=== PATIENT | female | born 1975 | race Caucasian/White ===

== ENCOUNTER 2017-06-23 04:57 | Emergency (ER) | payer SELFPAY ==
[2017-06-23] MEDS ORDERED: Sodium Chloride 0.9% 10 ML Syringe FLUSH PRN (05:05)
[2017-06-23] MEDS ORDERED: Norflurane/HFc 245FA Medium Stream Spray 103.5 ML Can ONE (05:12)
[2017-06-23] MEDS ORDERED: Thiamine 100 MG Tab PO ONE (05:31)
[2017-06-23 05:32] LABS: CHLORIDE,CL 99 mmol/L (98-107); SODIUM,NA 135 mmol/L (136-145)
[2017-06-23] MEDS ORDERED: Ondansetron 4 MG/2 ML SDV IVPUSH ONE (05:32)
[2017-06-23] MEDS ORDERED: Sodium Chloride 0.9% 1,000 ML IV ONE ×2 (05:32→08:00)
[2017-06-23] MEDS ORDERED: LORazepam 2 MG/ML MDV IVPUSH ONE ×2 (05:33→10:00)
--- NOTE | 2017-06-23 05:46 | EDM.PDOCBH ---
ED HPI GENERAL MEDICAL PROBLEM - General Chief Complaint: Behavioral/Psych Stated Complaint: etoh withdraw Time Seen by Provider: 06/23/17 05:16 Source of Information: Reports: Patient History Limitations: Reports: No Limitations - History of Present Illness INITIAL COMMENTS - FREE TEXT/NARRATIVE: Patient admits to increasing alcohol consumption and admits that she has now become alcoholic. Was drinking heavily the last 3-4 days (wine/vodka) and would drink till she blacked out. Her kids poured out her alcohol yesterday and she has not had a drink since 4pm yesterday. Is now having some shakes and mild nausea/abdominal discomfort. Feels she is withdrawing. Would like medication to help with symptoms. Has a son who is looking to get her into treatment. Denies hallucinations/seizures/prior DTs. - Related Data Allergies Allergy/AdvReac Type Severity Reaction Status Date / Time No Known Allergies Allergy Verified 06/23/17 04:59 Home Meds: Home Meds RX: Lisinopril/Hydrochlorothiazide [Lisinopril-Hctz 20-12.5 mg Tab] 1 each PO DAILY 01/31/14 [History] RX: B12/Levomefolate Calcium/B-6 [Foltx Tablet] 1 each PO DAILY 01/16/15 [ History] RX: Biotin 5 mg PO DAILY 01/16/15 [History] RX: Calcium Carb/D3/Magnesium/Zinc [Diogenes Mag Zinc + D Tablet] 2 tab PO DAILY 03/26 [History] RX: Ferrous Sulfate [Feosol] 325 mg PO DAILY 01/16/15 [History] RX: Gluc/Kory-Msm#1/Vit C/Augustus/Bor [Tgrifgl-Fwhkb-KVM Complex Cplt] 1 each PO DAILY 01/16/15 [History] RX: Lactobacillus Acidophilus [Acidophilus Lactobacillus] 1 each PO DAILY [History] RX: Magnesium Oxide [Magnesium] 400 mg PO DAILY 01/16/15 [History] RX: MQS379/Iron Fumarate/FA/DSS [ 19 Tablet] 1 tab PO DAILY 01/16/15 [ History] RX: Potassium Chloride 10 meq PO DAILY 01/16/15 [History] RX: Vit D3 & K/Berberine HCl/Hops [Ostera] 1 each PO DAILY 01/16/15 [History] LORazepam [Ativan] 0.5 mg PO ASDIRECTED #8 tablet 06/23/17 [Rx] LORazepam [Ativan] 1 mg PO ASDIRECTED #8 tablet 06/23/17 [Rx] Past Medical History Cardiovascular History: Reports: Hypertension Endocrine/Metabolic History: Reports: Obesity/BMI 30+ Social & Family History - Tobacco Use Smoking Status *Q: Never Smoker Second Hand Smoke Exposure: No - Alcohol Use Days Per Week of Alcohol Use: 7 (she denies alcohol abuse or previous DWI) Number of Drinks Per Day: 5 (hard liquor usually directly out of the bottle and not specifically measured) Total Drinks Per Week: 35 - Recreational Drug Use Recreational Drug Use: No Recreational Drug Type: Reports: Marijuana/Hashish (experimented at age 34). Denies: Amphetamines (Speed) (patient denies despite positive drug screen today) - Living Situation & Occupation Living situation: Reports: with Family Occupation: Employed ED ROS GENERAL - Review of Systems Review Of Systems: See Below Constitutional: Reports: Malaise, Decreased Appetite. Denies: Fever, Chills, Weakness, Fatigue, Night Sweats HEENT: Reports: Vertigo (triggered by head rotation) Respiratory: Reports: No Symptoms Cardiovascular: Reports: No Symptoms GI/Abdominal: Reports: Other (abdomen feels funny, not really described as painful per patient). Denies: Constipation, Diarrhea, Hematemesis, Hematochezia , Melena, Nausea, Vomiting : Reports: No Symptoms Musculoskeletal: Reports: No Symptoms Skin: Reports: No Symptoms Neurological: Reports: No Symptoms Psychiatric: Denies: Confusion, Hallucinations, Homicidal Ideation, Mood Lability, Suicidal Ideation ED EXAM, BEHAVIORAL HEALTH - Physical Exam Exam: See Below Exam Limited By: No Limitations General Appearance: Alert, No Apparent Distress, Obese Eye Exam: Bilateral Eye: EOMI, PERRL Ears: Normal External Exam Nose: Normal Inspection Throat/Mouth: Normal Inspection, Normal Voice, No Airway Compromise Head: Atraumatic, Normocephalic Neck: Normal Inspection, Supple, Non-Tender, Full Range of Motion Respiratory/Chest: No Respiratory Distress, Lungs Clear, Normal Breath Sounds, No Accessory Muscle Use, Chest Non-Tender Cardiovascular: Regular Rate, Rhythm, No Murmur GI/Abdominal: Normal Bowel Sounds, Soft, Non-Tender, No Distention (Female) Exam: Deferred Rectal (Female) Exam: Deferred Back Exam: Normal Inspection Extremities: Normal Inspection, Normal Range of Motion, Non-Tender, Normal Capillary Refill Neurological: Alert, Normal Mood/Affect, Normal Cognition, Normal Gait, Normal Reflexes, No Motor/Sensory Deficits, Oriented x 3 Psychiatric: Alert, Normal Affect, Normal Cognition, Normal Mood, Oriented Skin Exam: Warm, Dry, Intact, Normal color COURSE, BEHAVIORAL HEALTH COMP - Course Vital Signs: Last Vital Signs Temp Pulse 96 06/23/17 10:00 Resp 18 06/23/17 10:00 BP 146/89 H 06/23/17 10:00 Pulse Ox 99 06/23/17 10:00 Orders, Labs, Meds: Active Orders 24 hr Category Date Time Status Sodium Chloride 0.9% [Saline Flush] Med 06/23/17 05:05 Active 10 ml FLUSH ASDIRECTED PRN Saline Lock Insert [OM.PC] Routine Oth 06/23/17 05:05 Ordered Medication Orders Sodium Chloride (Saline Flush) 10 ml FLUSH ASDIRECTED PRN PRN Reason: Keep Vein Open Last Admin: 06/23/17 05:24 Dose: 10 ml Laboratory Tests 06/23/17 06/23/17 06/23/17 Range/Units 05:15 05:15 06:20 WBC 4.9 (4.0-10.2) K/uL RBC 5.54 H (3.77-5.09) M/uL Hgb 12.3 (11.7-15.5) g/dL Hct 39.9 (34.0-46.0) % MCV 72.0 L D (84.0-98.0) fL MCH 22.2 L (28.2-33.3) pg MCHC 30.8 L (31.7-36.0) g/dL RDW 19.2 H (11.2-14.1) % Plt Count 271 (150-350) K/uL Neut % (Auto) 68.1 (45.0-80.0) % Lymph % (Auto) 17.3 (10.0-50.0) % [place] % (Auto) 12.8 (2.0-14.0) % Eos % (Auto) 0.6 (0.0-5.0) % Baso % (Auto) 1.2 (0.0-2.0) % Neut # (Auto) 3.31 (1.40-7.00) K/uL Lymph # (Auto) 0.84 (0.50-3.50) K/uL [place] # (Auto) 0.62 (0.00-1.00) K/uL Eos # (Auto) 0.03 (0.00-0.50) K/uL Baso # (Auto) 0.06 (0.00-0.20) K/uL Sodium 135 L (136-145) mmol/L Potassium 4.0 (3.5-5.1) mmol/L Chloride 99 (98-107) mmol/L Carbon Dioxide 25.2 (21.0-32.0) mmol/L BUN 12 (7-18) mg/dL Creatinine 0.69 (0.51-1.17) mg/dL Est Cr Clr Drug Dosing 80.15 mL/min Estimated GFR (MDRD) > 60 mL/min Glucose 113 H (74-106) mg/dL Calcium 9.1 (8.5-10.1) mg/dL Total Bilirubin 0.6 (0.2-1.0) mg/dL AST 39 H (15-37) U/L ALT 29 (12-78) U/L Alkaline Phosphatase 72 (46-116) IU/L Total Protein 7.8 (6.4-8.2) g/dL Albumin 3.4 (3.4-5.0) g/dL Urine Opiates Screen Negative (NEGATIVE) Urine Methadone Screen Negative (NEGATIVE) U Acetaminophen Screen Negative (NEGATIVE) Ur Barbiturates Screen Negative (NEGATIVE) Ur Tricyclics Screen Negative (NEGATIVE) Ur Phencyclidine Scrn Negative (NEGATIVE) Ur Amphetamine Screen Negative (NEGATIVE) U Methamphetamines Scrn Negative (NEGATIVE) U Benzodiazepines Scrn Negative (NEGATIVE) U Cocaine Metab Screen Negative (NEGATIVE) U Marijuana (THC) Screen Negative (NEGATIVE) Ethyl Alcohol 0.000 (0.000-0.080) g/dL Medications Generic Name Dose Route Start Last Admin Trade Name Freq PRN Reason Stop Dose Admin Sodium Chloride 10 ml 06/23/17 05:05 06/23/17 05:24 Saline Flush FLUSH 10 ml ASDIRECTED PRN Administration Keep Vein Open Discontinued Medications Generic Name Dose Route Start Last Admin Trade Name Freq PRN Reason Stop Dose Admin Sodium Chloride 1,000 mls @ 500 mls/hr 06/23/17 05:32 06/23/17 05:44 Normal Saline IV 06/23/17 07:31 500 mls/hr .BOLUS ONE Infusion Sodium Chloride 1,000 mls @ 500 mls/hr 06/23/17 08:00 06/23/17 07:58 Normal Saline IV 06/23/17 09:59 500 mls/hr .BOLUS ONE Administration Lisinopril 10 mg 06/23/17 05:48 06/23/17 06:18 Prinivil PO 06/23/17 05:49 10 mg ONETIME ONE Administration Lorazepam 1 mg 06/23/17 05:33 06/23/17 05:51 Ativan IVPUSH 06/23/17 05:34 1 mg ONETIME ONE Administration Lorazepam 1 mg 06/23/17 10:00 06/23/17 10:17 Ativan IVPUSH 06/23/17 10:01 1 mg ONETIME ONE Administration Norflurane Confirm 06/23/17 05:12 06/23/17 05:24 Pain Ease [place] Administered 06/23/17 05:13 1 spray Dose Administration 103.5 ml .ROUTE .STK-MED ONE Ondansetron HCl 4 mg 06/23/17 05:32 06/23/17 05:43 Zofran IVPUSH 06/23/17 05:33 4 mg ONETIME ONE Administration Thiamine HCl 100 mg 06/23/17 05:31 06/23/17 06:18 Vitamin B-1 PO 06/23/17 05:32 100 mg ONETIME ONE Administration Re-Assessment/Re-Exam: Patient given IV fluid and ATivan to help improve withdrawal complaints. Observed in ER while receiving IV fluid. Overall she felt much better. Drug screen negative. ETOH zero Labs overall unremarkable. Microcytosis and mild elevation AST noted. Plan at this time is to discharge patient. Family is here and is willing to help patient. Patient says that at this point she knows she needs to stop drinking and is interested in getting help. Appointment made for patient to follow up this afternoon at primary clinic. They can discuss options for treatment as well as continued monitoring. Small Rx for ATivan will be given for patient to use over the next few days to help with the withdrawal symptoms. Only symptoms observed in ER was mild agitation, mild shakiness. No hallucinations/seizures or other significant symptoms noted. Departure - Departure Time of Disposition: 10:53 Disposition: Home, Self-Care 01 Clinical Impression: Alcohol abuse - Discharge Information Prescriptions: LORazepam [Ativan] 1 mg PO ASDIRECTED #8 tablet LORazepam [Ativan] 0.5 mg PO ASDIRECTED #8 tablet Instructions: Lorazepam injection, Lorazepam tablets, Delirium Tremens, Easy-to -Read, Alcohol Use Disorder Referrals: Clau Avelar PA [Primary Care Provider] - Forms: ED Department Discharge Additional Instructions: See Primary care provider "Usman" at [facility] Today June 23, 2017 at 2:20 today as already scheduled. Discuss possibility of antidepression medication as well as alcohol treatment options. Check local listings for AA meetings and meetings for family members as well. You CANNOT drink alcohol while you are taking Ativan (lorazepam). You will become very ill. You will slowly taper your Ativan down as far as dose and timing. Today take one 1mg tablet every 4 hours. Tomorrow you take one every 6 hours. When the 1mg tablets are gone, take one 0.5mg tablet every 6 hours for one day. Then go to one tablet every 8 hours. Recommend follow up with you clinic again in 2 days to see how you are doing. - My Orders Last 24 Hours: My Active Orders 06/23/17 05:05 Sodium Chloride 0.9% [Saline Flush] 10 ml FLUSH ASDIRECTED PRN Saline Lock Insert [OM.PC] Routine - Assessment/Plan Last 24 Hours: My Active Orders 06/23/17 05:05 Sodium Chloride 0.9% [Saline Flush] 10 ml FLUSH ASDIRECTED PRN Saline Lock Insert [OM.PC] Routine
[2017-06-23] MEDS ORDERED: Lisinopril 10 MG Tab PO ONE (05:48)
== END 2017-06-23 11:20 | disposition home or self-care (01) ==
LOC: LL.ED 04:57
DX: F10.10 Alcohol abuse, uncomplicated (principal); I10 Essential (primary) hypertension; E66.9 Obesity, unspecified; Z79.899 Other long term (current) drug therapy
CPT/HCPCS: 36415; 80053; 80305; 85025; 96361; 96374; 96375; 96376; 99285; A9270; G0480; J2060; J2405; J7030; J7050; 99284

== ENCOUNTER 2017-12-11 09:53 | Inpatient (IN) | payer OTHER ==
[2017-12-11] MEDS ORDERED: Famotidine 20 MG/2 ML SDV IVPUSH ONE (09:56)
--- NOTE | 2017-12-11 09:56 | EDM.PDOC ---
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 Text/Narrative:: Manufacturing Intern shows normal sinus rhythm with heart rate in the 60s to 80s with no ectopy or arrhythmia Chest x-ray, portable, report shows no abnormalities with my evaluation indicates some borderline pulmonary obstructive disease and cardiomegaly with no CHF, pulmonary hypertension, pneumothorax, pulmonary infiltrates, etc. Telephone consultation at 10:31 AM with the radiology department at [facility] with preliminary verbal report of noncontrast CT of the head showing no acute abnormalities. Written report subsequently obtained confirming above findings. Written report of CTA of the chest was negative for PE. Report received at 12: 20 p.m. hours with no previous verbal report given despite previous request. Departure - Departure Time of Disposition: 12:25 Disposition: Refer to Observation Condition: Good Clinical Impression: UTI (lower urinary tract infection), Hyperuricemia, Hypoalbuminemia, D-dimer, elevated, Alcohol abuse, Lactic acid increased, Peptic reflux disease Iron deficiency anemia Qualifiers: Iron deficiency anemia type: inadequate dietary iron intake Qualified Code(s): D50.8 - Other iron deficiency anemias Hypertension Qualifiers: Hypertension type: essential hypertension Qualified Code(s): I10 - Essential ( primary) hypertension Hyperlipidemia Qualifiers: Hyperlipidemia type: unspecified Qualified Code(s): E78.5 - Hyperlipidemia, unspecified - Discharge Information Forms: ED Department Discharge Care Plan Goals: See plan - Problem List & Annotations (1) Hypertension SNOMED Code(s): 54078611 Code(s): I10 - ESSENTIAL (PRIMARY) HYPERTENSION Status: Chronic Priority : High Current Visit: No Onset Date: 12/11/17 Annotation/Comment:: Stroke code called by me on patient's arrival to this facility. Nonspecific possible CVA type symptoms, however completely normal neurological exam and normal CT scan of the head as above. Strong anxiety component. Continue neurological checks during hospitalization. MRI of the head to be conducted tomorrow. The patient has been noncompliant with her blood pressure and other medications as above with previous history of this in the past based on review of our medical records. Medication compliance once again strongly encouraged. Close followup by her regular providers at discharge. Note mildly elevated BNP, however otherwise normal EKG and cardiac enzymes. No chest pain or anginal type symptoms or evidence of CHF, including by chest x-ray, etc. Qualifiers: Hypertension type: essential hypertension Qualified Code(s): I10 - Essential (primary) hypertension (2) D-dimer, elevated SNOMED Code(s): 805219879 Code(s): R79.89 - OTHER SPECIFIED ABNORMAL FINDINGS OF BLOOD CHEMISTRY Status: Acute Priority: High Current Visit: No Onset Date: 12/11/17 Annotation/Comment:: Note CTA results as above. Venous Doppler studies of lower extremities in the a.m. Note no clinical evidence of DVT or PE. Initiate subcutaneous Lovenox therapy at [facility] for now. (3) Lactic acid increased SNOMED Code(s): 12595244 Code(s): E87.2 - ACIDOSIS Status: Acute Priority: High Current Visit: No Onset Date: 12/11/17 Annotation/Comment:: Despite current UTI no clinical evidence of sepsis. Lactic acid level to be repeated in 3 hours and then in the a.m. Continue to observe closely (4) UTI (lower urinary tract infection) SNOMED Code(s): 3382117 Code(s): N39.0 - URINARY TRACT INFECTION, SITE NOT SPECIFIED Status: Acute Priority: Medium Current Visit: No Annotation/Comment:: UTI with patient to be started on IV Rocephin. Urine specimen set up for culture and sensitivity. No direct evidence of urosepsis despite elevated lactic Level. (5) Mixed anxiety depressive disorder SNOMED Code(s): 597402545 Code(s): F41.8 - OTHER SPECIFIED ANXIETY DISORDERS Status: Chronic Priority: High Current Visit: No Annotation/Comment:: Note significant medication noncompliance. No suicidal ideation by patient history. Reinitiate Zoloft. Emotional support provided. Note possible substance abuse as above (6) Peptic reflux disease SNOMED Code(s): 010326245 Code(s): K21.9 - GASTRO-ESOPHAGEAL REFLUX DISEASE WITHOUT ESOPHAGITIS Status: Chronic Priority: Medium Current Visit: No Annotation/Comment:: Stable by history with resolved symptoms after gastric bypass as above. High- dose IV Pepcid given in the emergency room as GI prophylaxis (7) Hyperlipidemia SNOMED Code(s): 00724337 Code(s): E78.5 - HYPERLIPIDEMIA, UNSPECIFIED Status: Chronic Priority: Medium Current Visit: No Annotation/Comment:: Lipid panel in the a.m. Qualifiers: Hyperlipidemia type: unspecified Qualified Code(s): E78.5 - Hyperlipidemia , unspecified (8) Iron deficiency anemia SNOMED Code(s): 19120109 Code(s): D50.9 - IRON DEFICIENCY ANEMIA, UNSPECIFIED Status: Chronic Priority: High Current Visit: No Annotation/Comment:: Reinitiate iron supplementation, etc. secondary to previous gastric bypass. Recommend repeat iron studies, vitamin B 12 level, etc. 4 weeks after hospital discharge Qualifiers: Iron deficiency anemia type: inadequate dietary iron intake Qualified Code( s): D50.8 - Other iron deficiency anemias (9) Hyperuricemia SNOMED Code(s): 24993294 Code(s): E79.0 - HYPERURICEMIA W/O SIGNS OF INFLAM ARTHRIT AND TOPHACEOUS DIS Status: Chronic Priority: Medium Current Visit: No Annotation/ Comment:: Mild osteoarthritis stable by patient history with no recent or previous history of gout. Observe for now (10) Elevated LFTs SNOMED Code(s): 556173341, 128935166 Code(s): R79.89 - OTHER SPECIFIED ABNORMAL FINDINGS OF BLOOD CHEMISTRY Status: Acute Priority: Medium Current Visit: No Onset Date: 12/11/17 Annotation/Comment:: Likely secondary to fatty liver and obesity. Lipid panel in a.m. as above (11) Hypomagnesemia SNOMED Code(s): 039970108 Code(s): E83.42 - HYPOMAGNESEMIA Status: Acute Priority: Medium Current Visit: No Onset Date: 12/11/17 Annotation/Comment:: Note history of migraine headaches. Initiate magnesium oxide supplement with close follow-up on an outpatient basis (12) Hypoalbuminemia SNOMED Code(s): 733997924 Code(s): E88.09 - OTH DISORDERS OF PLASMA-PROTEIN METABOLISM, NEC Status: Chronic Priority: Medium Current Visit: No Annotation/Comment:: Initiate high protein Glucerna supplements as snacks (13) Alcohol abuse SNOMED Code(s): 75131106 Code(s): F10.10 - ALCOHOL ABUSE, UNCOMPLICATED Status: Chronic Priority: Medium Current Visit: No Annotation/Comment:: Despite patient's denial probable problems with alcohol with previous marijuana experimentation and positive methamphetamine drug screen, which the patient denies using. Note current stressors, etc. continue to observe her emotional status closely - Problem List Review Problem List Initiated/Reviewed/Updated: Yes - My Orders Last 24 Hours: My Active Orders 12/11/17 09:56 Blood Glucose Check, Bedside [RC] STAT Cardiac Monitoring [RC] STAT EKG Documentation Completion [RC] ASDIRECTED NIH Stroke Scale [RC] ASDIRECTED Oxygen Therapy, ED [RC] CONTINUOUS Peripheral IV Care [RC] . DIRECTED Pulse Oximetry [RC] CONTINUOUS Up With Assistance [RC] ASDIRECTED Vital Signs [RC] PFP Chest 1V Frontal [CR] Stat Head wo Cont [CT] Stat PROLACTIN [REF] Stat Sodium Chloride 0.9% [Saline Flush] 10 ml FLUSH ASDIRECTED PRN Obtain Past Medical Record [OM.PC] Stat Peripheral IV Insertion Adult [OM.PC] Stat Resuscitation Status Stat 12/11/17 10:30 Chest PE [Ang Chest] [CT] Stat CULTURE URINE [RM] Routine DRUG SCREEN, URINE [URCHEM] Stat URINALYSIS W/MICROSCOPIC [UA W/MICROSCOPIC] [URIN] Routine 12/11/17 Breakfast Nothing per Oral Now Diet [DIET] - Assessment/Plan Admission H&P: Please use this note as an admission H&P Last 24 Hours: My Active Orders 12/11/17 09:56 Blood Glucose Check, Bedside [RC] STAT Cardiac Monitoring [RC] STAT EKG Documentation Completion [RC] ASDIRECTED NIH Stroke Scale [RC] ASDIRECTED Oxygen Therapy, ED [RC] CONTINUOUS Peripheral IV Care [RC] . DIRECTED Pulse Oximetry [RC] CONTINUOUS Up With Assistance [RC] ASDIRECTED Vital Signs [RC] PFP Chest 1V Frontal [CR] Stat Head wo Cont [CT] Stat PROLACTIN [REF] Stat Sodium Chloride 0.9% [Saline Flush] 10 ml FLUSH ASDIRECTED PRN Obtain Past Medical Record [OM.PC] Stat Peripheral IV Insertion Adult [OM.PC] Stat Resuscitation Status Stat 12/11/17 10:30 Chest PE [Ang Chest] [CT] Stat CULTURE URINE [] Routine DRUG SCREEN, URINE [URCHEM] Stat URINALYSIS W/MICROSCOPIC [UA W/MICROSCOPIC] [URIN] Routine 12/11/17 Breakfast Nothing per Oral Now Diet [DIET] Assessment:: As above. Plan: As above. Extensive precautions were given to the patient, who is in agreement with the treatment plan. Admit on telemetry in observation status. The patient' s condition is stable enough for observation status and general supervision.
[2017-12-11 10:32] LABS: CHLORIDE,CL 100 mmol/L (98-107); SODIUM,NA 137 mmol/L (136-145)
[2017-12-11] MEDS ORDERED: Iopamidol 755 Mg/ML 100 ML Bottle IVPUSH ONE (10:38)
[2017-12-11] MEDS ORDERED: Lisinopril 10 MG Tab PO ONE (11:50)
[2017-12-11] MEDS ORDERED: B6 PO SCH (14:15)
[2017-12-11] MEDS ORDERED: LEVOMEFOLATE CALCIUM PO SCH (14:15)
[2017-12-11] MEDS ORDERED: B12 PO SCH (14:15)
[2017-12-11] MEDS ORDERED: Acetaminophen 325 MG Tab PO PRN (14:22)
[2017-12-11] MEDS ORDERED: Temazepam 15 MG Cap PO PRN (14:22)
[2017-12-11] MEDS ORDERED: Enoxaparin 100 MG/1 ML Syringe SUBCUT SCH (14:30)
[2017-12-11] MEDS: cefTRIAXone 1 GM in Sodium Chloride 0.9% 100 ML IV SCH (15:31)
[2017-12-11] MEDS: Magnesium Oxide 400 MG Tab PO SCH (15:33)
[2017-12-11] MEDS: Ferrous Sulfate 325 MG Tab PO SCH (17:19)
[2017-12-12] MEDS: cefTRIAXone 1 GM in Sodium Chloride 0.9% 100 ML IV SCH ×2 (01:44→14:23)
[2017-12-12] MEDS: Sodium Chloride 0.9% 10 ML Syringe FLUSH PRN ×7 (01:44→21:25)
[2017-12-12 07:56] LABS: CHLORIDE,CL 101 mmol/L (98-107); SODIUM,NA 137 mmol/L (136-145)
[2017-12-12] MEDS ORDERED: LACTOBACILLUS ACIDOPHILUS E PO SCH (08:00)
[2017-12-12] MEDS ORDERED: Non-Formulary Medication 1 Each (Biotin [Biotin] 5 MG) PO SCH (08:00)
[2017-12-12] MEDS: Lisinopril 20 MG Tab PO SCH (08:04)
[2017-12-12] MEDS: Citalopram 20 MG Tab PO SCH (08:04)
[2017-12-12] MEDS: Ferrous Sulfate 325 MG Tab PO SCH ×2 (08:04→17:16)
[2017-12-12] MEDS: Propranolol 60 MG Cap.ER PO SCH (08:04)
[2017-12-12] MEDS: Magnesium Oxide 400 MG Tab PO SCH (08:05)
[2017-12-12] MEDS ORDERED: Ondansetron 4 MG/2 ML SDV IVPUSH PRN (09:30)
--- NOTE | 2017-12-12 09:36 | PCM.PN ---
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 strongly advisable with previous history of gastric bypass. Glycosylated hemoglobin was normal. (8) Iron deficiency anemia SNOMED Code(s): 09716475 Code(s): D50.9 - IRON DEFICIENCY ANEMIA, UNSPECIFIED Status: Chronic Priority: High Current Visit: Yes Qualifiers: Iron deficiency anemia type: inadequate dietary iron intake Qualified Code( s): D50.8 - Other iron deficiency anemias Annotation/Comment:: Reinitiated iron supplementation, etc. secondary to previous gastric bypass. Increase iron supplementation secondary to her progressive anemia with additional vitamin B-12 IM injection today. Recommend repeat iron studies, vitamin B 12 level, etc. 4 weeks after hospital discharge (9) Hyperuricemia SNOMED Code(s): 77522693 Code(s): E79.0 - HYPERURICEMIA W/O SIGNS OF INFLAM ARTHRIT AND TOPHACEOUS DIS Status: Chronic Priority: Medium Current Visit: Yes Annotation/ Comment:: Mild osteoarthritis stable by patient history with no recent or previous history of gout. Observe for now (10) Elevated LFTs SNOMED Code(s): 433182673, 709950626 Code(s): R79.89 - OTHER SPECIFIED ABNORMAL FINDINGS OF BLOOD CHEMISTRY Status: Acute Priority: Medium Current Visit: Yes Onset Date: 12/11/17 Annotation/Comment:: Likely secondary to fatty liver and obesity. Lipid panel conducted today as above. (11) Hypomagnesemia SNOMED Code(s): 952954706 Code(s): E83.42 - HYPOMAGNESEMIA Status: Acute Priority: Medium Current Visit: Yes Onset Date: 12/11/17 Annotation/Comment:: Note history of migraine headaches. Initiated magnesium oxide supplement on admission with close follow-up on an outpatient basis (12) Hypoalbuminemia SNOMED Code(s): 009765275 Code(s): E88.09 - OTH DISORDERS OF PLASMA-PROTEIN METABOLISM, NEC Status: Chronic Priority: Medium Current Visit: Yes Annotation/Comment:: Initiated high protein Glucerna supplements as snacks on admission (13) Alcohol abuse SNOMED Code(s): 89110802 Code(s): F10.10 - ALCOHOL ABUSE, UNCOMPLICATED Status: Chronic Priority: Medium Current Visit: Yes Annotation/Comment:: Despite patient's denial probable problems with alcohol with previous marijuana experimentation and positive methamphetamine drug screen, which the patient denies using, as per emergency room note. Note current stressors, etc. continue to observe her emotional status closely - Problem List Review Problem List Initiated/Reviewed/Updated: Yes - My Orders Last 24 Hours: My Active Orders 12/11/17 09:56 Cardiac Monitoring [RC] Q2HR NIH Stroke Scale [RC] ASDIRECTED Oxygen Therapy, ED [RC] CONTINUOUS Peripheral IV Care [RC] . DIRECTED Pulse Oximetry [RC] CONTINUOUS Vital Signs [RC] PFP Chest 1V Frontal [CR] Stat Head wo Cont [CT] Stat PROLACTIN [REF] Stat Sodium Chloride 0.9% [Saline Flush] 10 ml FLUSH ASDIRECTED PRN Peripheral IV Insertion Adult [OM.PC] Stat Resuscitation Status Stat 12/11/17 10:30 Chest PE [Ang Chest] [CT] Stat CULTURE URINE [RM] Routine 12/11/17 14:15 B12/Levomefolate Calcium/B-6 [Foltx Tablet] 1 each PO DAILY 12/11/17 14:22 Acetaminophen [Tylenol] 650 mg PO Q4H PRN Sodium Chloride 0.9% [Saline Flush] 10 ml FLUSH Q12HR PRN Temazepam [Restoril] 15 mg PO BEDTIME PRN 12/11/17 14:23 Antiembolic Devices [RC] 08,20 Communication, Vaccine [RC] PER UNIT ROUTINE Height and Weight [RC] DAILY Intake and Output Strict [RC] ASDIRECTED Oxygen Therapy [RC] PRN Pulse Oximetry [RC] ASDIRECTED Up With Assistance [RC] ASDIRECTED VTE/DVT Education [RC] PER UNIT ROUTINE Vaccines to be Administered [RC] PER UNIT ROUTINE OCCULT BLOOD DIAGNOSTIC [OP] Stat Antiembolic Hose [OM.PC] Routine DVT/VTE Prophylaxis Reflex [OM.PC] Routine GM Immunization Reflex [OM.PC] Click To Edit 12/11/17 14:30 H PYLORI STOOL ANTIGEN [MREF] ONETIME Enoxaparin [Lovenox] 100 mg SUBCUT Q24H cefTRIAXone [Rocephin] 1 gm Sodium Chloride 0.9% [Normal Saline] 100 ml IV Q12H 12/11/17 14:31 Communication Order [RC] ROUTINE 12/11/17 14:32 Communication Order [RC] ROUTINE 12/11/17 14:45 Magnesium Oxide 400 mg PO DAILY 12/11/17 17:30 Ferrous Sulfate 325 mg PO BIDMEALS 12/11/17 17:33 Vital Signs [RC] Q4HR 12/12/17 05:11 EKG Documentation Completion [RC] ASDIRECTED MRA Head Without Contrast [Ang Head wo Cont] [MR] Urgent Venous Doppler Lwr Ext Bi [US] Urgent 12/12/17 08:00 Biotin [Biotin] 5 mg PO DAILY Citalopram [Celexa] 20 mg PO DAILY Lactobacillus Acidophilus [Acidophilus Lactobacillus] 1 each PO DAILY Lisinopril [Prinivil] 20 mg PO DAILY Propranolol [Inderal LA] 60 mg PO DAILY 12/12/17 09:30 Ondansetron [Zofran] 4 mg IVPUSH Q6H PRN - Assessment Assessment:: As above - Plan Plan:: As above. Extensive precautions were given to the patient and her , who are in agreement with the treatment plan. Anticipate hospital discharge tomorrow , however may need to change to inpatient/acute care depending on her clinical course.
[2017-12-12] MEDS ORDERED: Cyanocobalamin (Vitamin B12) 1,000 MCG/ML SDV IM ONE (10:09)
[2017-12-12] MEDS: Pantoprazole 40 MG Vial IVPUSH SCH ×2 (11:00→21:25)
[2017-12-12] MEDS: Furosemide 40 MG/4 ML VIAL IVPUSH SCH ×2 (11:00→21:31)
[2017-12-12] MEDS: Famotidine 20 MG/2 ML SDV IVPUSH SCH ×2 (11:00→17:15)
[2017-12-12] MEDS: Phenazopyridine 95 MG Tab PO SCH ×2 (12:06→17:34)
[2017-12-12] MEDS ORDERED: LORazepam 1 MG Tab PO ONE (13:08)
[2017-12-12] MEDS ORDERED: Enoxaparin 100 MG/1 ML Syringe SUBCUT SCH (14:00)
[2017-12-12] MEDS: Potassium Chloride 20 MEQ Tab.ER PO SCH (17:15)
[2017-12-12] MEDS: Simvastatin 10 MG Tab PO SCH (21:24)
[2017-12-13] MEDS: Sodium Chloride 0.9% 10 ML Syringe FLUSH PRN ×8 (01:29→22:08)
[2017-12-13] MEDS: cefTRIAXone 1 GM in Sodium Chloride 0.9% 100 ML IV SCH ×2 (01:29→14:41)
[2017-12-13] MEDS: LORazepam 1 MG Tab PO PRN ×2 (01:49→22:09)
[2017-12-13] MEDS: Potassium Chloride 20 MEQ Tab.ER PO SCH ×3 (07:45→17:12)
[2017-12-13] MEDS: Propranolol 60 MG Cap.ER PO SCH (07:45)
[2017-12-13] MEDS: Lisinopril 20 MG Tab PO SCH (07:46)
[2017-12-13] MEDS: Magnesium Oxide 400 MG Tab PO SCH (07:47)
[2017-12-13] MEDS: Ferrous Sulfate 325 MG Tab PO SCH ×2 (07:47→17:12)
[2017-12-13] MEDS: Citalopram 20 MG Tab PO SCH (07:47)
[2017-12-13] MEDS: Famotidine 20 MG/2 ML SDV IVPUSH SCH ×2 (07:47→17:13)
[2017-12-13 07:53] LABS: CHLORIDE,CL 101 mmol/L (98-107); SODIUM,NA 138 mmol/L (136-145)
[2017-12-13] MEDS: Phenazopyridine 95 MG Tab PO SCH ×2 (09:55→14:43)
[2017-12-13] MEDS: Furosemide 40 MG/4 ML VIAL IVPUSH SCH (09:56)
[2017-12-13] MEDS: Pantoprazole 40 MG Vial IVPUSH SCH ×2 (09:56→22:08)
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
[2017-12-13] MEDS ORDERED: Iopamidol 612 MG/ML 100 ML Bottle IVPUSH ONE (12:00)
[2017-12-13] MEDS: Simvastatin 10 MG Tab PO SCH (20:04)
[2017-12-14] MEDS: cefTRIAXone 1 GM in Sodium Chloride 0.9% 100 ML IV SCH (01:35)
[2017-12-14] MEDS: Sodium Chloride 0.9% 10 ML Syringe FLUSH PRN ×3 (01:36→10:32)
[2017-12-14 07:36] LABS: CHLORIDE,CL 103 mmol/L (98-107); SODIUM,NA 139 mmol/L (136-145)
[2017-12-14] MEDS: Potassium Chloride 20 MEQ Tab.ER PO SCH (07:36)
[2017-12-14] MEDS: Famotidine 20 MG/2 ML SDV IVPUSH SCH (07:36)
[2017-12-14] MEDS: Magnesium Oxide 400 MG Tab PO SCH (07:37)
[2017-12-14] MEDS: Citalopram 20 MG Tab PO SCH (07:37)
[2017-12-14] MEDS: Propranolol 60 MG Cap.ER PO SCH (07:37)
[2017-12-14] MEDS: Ferrous Sulfate 325 MG Tab PO SCH (07:37)
[2017-12-14] MEDS ORDERED: Furosemide 40 MG/4 ML VIAL IVPUSH SCH (08:00)
--- NOTE | 2017-12-14 08:48 | PCM.DCSUM1 ---
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 Natriuret Pep 139 H (0-125) pg/mL Total Protein 7.5 (6.4-8.2) g/dL Albumin 2.9 L (3.4-5.0) g/dL Triglycerides (30-150) mg/dL Cholesterol (100-200) mg/dL LDL Cholesterol, Calc (0-100) mg/dL HDL Cholesterol (40-60) mg/dL TSH, Ultra Sensitive 1.374 (0.358-3.740) mIU/mL Prolactin 9.0 ng/mL HCG, Qual (NEGATIVE) Specimen Type Urine Color Urine Appearance Urine pH (5.0-9.0) Ur Specific [place] (1.005-1.030) Urine Protein (NEGATIVE) mg/dL Urine Glucose (UA) (NEGATIVE) mg/dL Urine Ketones (NEGATIVE) mg/dL Urine Occult Blood (NEGATIVE) Urine Nitrite (NEGATIVE) Urine Bilirubin (NEGATIVE) Urine Urobilinogen (0.2-1.0) E.U./dL Ur Leukocyte Esterase (NEGATIVE) Urine RBC /HPF Urine WBC /HPF Ur Epithelial Cells /LPF Urine Bacteria (NONE TO FEW) /HPF Urinalysis Comment Urine Opiates Screen (NEGATIVE) Urine Methadone Screen U Acetaminophen Screen Ur Barbiturates Screen (NEGATIVE) Ur Tricyclics Screen (NEGATIVE) Ur Phencyclidine Scrn (NEGATIVE) Ur Amphetamine Screen (NEGATIVE) U Methamphetamines Scrn (NEGATIVE) U Benzodiazepines Scrn (NEGATIVE) U Cocaine Metab Screen (NEGATIVE) U Marijuana (THC) Screen (NEGATIVE) Ethyl Alcohol 0.086 H (0.000-0.080) g/dL 12/11/17 12/11/17 12/11/17 Range/Units 10:00 10:30 10:30 WBC (4.0-10.2) K/uL RBC (3.77-5.09) M/uL Hgb (11.7-15.5) g/dL Hct (34.0-46.0) % MCV (84.0-98.0) fL MCH (28.2-33.3) pg MCHC (31.7-36.0) g/dL RDW (11.2-14.1) % Plt Count (150-350) K/uL Neut % (Auto) (45.0-80.0) % Lymph % (Auto) (10.0-50.0) % Price % (Auto) (2.0-14.0) % Eos % (Auto) (0.0-5.0) % Baso % (Auto) (0.0-2.0) % Neut # (Auto) (1.40-7.00) K/uL Lymph # (Auto) (0.50-3.50) K/uL Price # (Auto) (0.00-1.00) K/uL Eos # (Auto) (0.00-0.50) K/uL Baso # (Auto) (0.00-0.20) K/uL PT (9.8-11.7) SEC INR APTT (22.1-29.8) SEC D-Dimer, Quantitative (0-400) ng/mL Sodium (136-145) mmol/L Potassium (3.5-5.1) mmol/L Chloride (98-107) mmol/L Carbon Dioxide (21.0-32.0) mmol/L BUN (7-18) mg/dL Creatinine (0.51-1.17) mg/dL Est Cr Clr Drug Dosing Estimated GFR (MDRD) mL/min Glucose (74-106) mg/dL Hemoglobin A1c (4.3-5.7) % Lactic Acid (0.4-2.0) mmol/L Uric Acid (2.6-7.2) mg/dL Calcium (8.5-10.1) mg/dL Magnesium (1.8-2.4) mg/dL Total Bilirubin (0.2-1.0) mg/dL AST (15-37) U/L ALT (12-78) U/L Alkaline Phosphatase (46-116) IU/L Creatine Kinase (26-308) U/L Creatine Kinase Index (0.0-2.5) % CK-MB (CK-2) (0.00-3.60) ng/mL Troponin I (0.000-0.056) ng/mL NT-Pro-B Natriuret Pep (0-125) pg/mL Total Protein (6.4-8.2) g/dL Albumin (3.4-5.0) g/dL Triglycerides (30-150) mg/dL Cholesterol (100-200) mg/dL LDL Cholesterol, Calc (0-100) mg/dL HDL Cholesterol (40-60) mg/dL TSH, Ultra Sensitive (0.358-3.740) mIU/mL Prolactin ng/mL HCG, Qual Negative (NEGATIVE) Specimen Type Urincc Urine Color Yellow Urine Appearance Cloudy Urine pH 5.5 (5.0-9.0) Ur Specific [place] 1.025 (1.005-1.030) Urine Protein 30 H (NEGATIVE) mg/dL Urine Glucose (UA) Negative (NEGATIVE) mg/dL Urine Ketones 15 H (NEGATIVE) mg/dL Urine Occult Blood Trace-lysed H (NEGATIVE) Urine Nitrite Negative (NEGATIVE) Urine Bilirubin Negative (NEGATIVE) Urine Urobilinogen 0.2 (0.2-1.0) E.U./dL Ur Leukocyte Esterase Small H (NEGATIVE) Urine RBC 0-5 /HPF Urine WBC >100 H /HPF Ur Epithelial Cells Moderate H /LPF Urine Bacteria Many H (NONE TO FEW) /HPF Urinalysis Comment Urine Opiates Screen Negative (NEGATIVE) Urine Methadone Screen TNP U Acetaminophen Screen TNP Ur Barbiturates Screen Negative (NEGATIVE) Ur Tricyclics Screen Negative (NEGATIVE) Ur Phencyclidine Scrn Negative (NEGATIVE) Ur Amphetamine Screen Negative (NEGATIVE) U Methamphetamines Scrn Negative (NEGATIVE) U Benzodiazepines Scrn Negative (NEGATIVE) U Cocaine Metab Screen Negative (NEGATIVE) U Marijuana (THC) Screen Negative (NEGATIVE) Ethyl Alcohol (0.000-0.080) g/dL 12/11/17 12/12/17 12/12/17 Range/Units 15:00 07:15 07:15 WBC 3.6 L (4.0-10.2) K/uL RBC 4.28 (3.77-5.09) M/uL Hgb 9.0 L (11.7-15.5) g/dL Hct 31.0 L (34.0-46.0) % MCV 72.4 L (84.0-98.0) fL MCH 21.0 L (28.2-33.3) pg MCHC 29.0 L (31.7-36.0) g/dL RDW 20.3 H (11.2-14.1) % Plt Count 129 L (150-350) K/uL Neut % (Auto) 59.4 (45.0-80.0) % Lymph % (Auto) 22.3 (10.0-50.0) % Price % (Auto) 14.4 H (2.0-14.0) % Eos % (Auto) 3.1 (0.0-5.0) % Baso % (Auto) 0.8 (0.0-2.0) % Neut # (Auto) 2.11 (1.40-7.00) K/uL Lymph # (Auto) 0.79 (0.50-3.50) K/uL Price # (Auto) 0.51 (0.00-1.00) K/uL Eos # (Auto) 0.11 (0.00-0.50) K/uL Baso # (Auto) 0.03 (0.00-0.20) K/uL PT (9.8-11.7) SEC INR APTT (22.1-29.8) SEC D-Dimer, Quantitative 698 H (0-400) ng/mL Sodium (136-145) mmol/L Potassium (3.5-5.1) mmol/L Chloride (98-107) mmol/L Carbon Dioxide (21.0-32.0) mmol/L BUN (7-18) mg/dL Creatinine (0.51-1.17) mg/dL Est Cr Clr Drug Dosing Estimated GFR (MDRD) mL/min Glucose (74-106) mg/dL Hemoglobin A1c (4.3-5.7) % Lactic Acid 1.2 (0.4-2.0) mmol/L Uric Acid (2.6-7.2) mg/dL Calcium (8.5-10.1) mg/dL Magnesium (1.8-2.4) mg/dL Total Bilirubin (0.2-1.0) mg/dL AST (15-37) U/L ALT (12-78) U/L Alkaline Phosphatase (46-116) IU/L Creatine Kinase (26-308) U/L Creatine Kinase Index (0.0-2.5) % CK-MB (CK-2) (0.00-3.60) ng/mL Troponin I (0.000-0.056) ng/mL NT-Pro-B Natriuret Pep (0-125) pg/mL Total Protein (6.4-8.2) g/dL Albumin (3.4-5.0) g/dL Triglycerides (30-150) mg/dL Cholesterol (100-200) mg/dL LDL Cholesterol, Calc (0-100) mg/dL HDL Cholesterol (40-60) mg/dL TSH, Ultra Sensitive (0.358-3.740) mIU/mL Prolactin ng/mL HCG, Qual (NEGATIVE) Specimen Type Urine Color Urine Appearance Urine pH (5.0-9.0) Ur Specific [place] (1.005-1.030) Urine Protein (NEGATIVE) mg/dL Urine Glucose (UA) (NEGATIVE) mg/dL Urine Ketones (NEGATIVE) mg/dL Urine Occult Blood (NEGATIVE) Urine Nitrite (NEGATIVE) Urine Bilirubin (NEGATIVE) Urine Urobilinogen (0.2-1.0) E.U./dL Ur Leukocyte Esterase (NEGATIVE) Urine RBC /HPF Urine WBC /HPF Ur Epithelial Cells /LPF Urine Bacteria (NONE TO FEW) /HPF Urinalysis Comment Urine Opiates Screen (NEGATIVE) Urine Methadone Screen U Acetaminophen Screen Ur Barbiturates Screen (NEGATIVE) Ur Tricyclics Screen (NEGATIVE) Ur Phencyclidine Scrn (NEGATIVE) Ur Amphetamine Screen (NEGATIVE) U Methamphetamines Scrn (NEGATIVE) U Benzodiazepines Scrn (NEGATIVE) U Cocaine Metab Screen (NEGATIVE) U Marijuana (THC) Screen (NEGATIVE) Ethyl Alcohol (0.000-0.080) g/dL 12/12/17 12/12/17 12/12/17 Range/Units 07:15 07:15 07:15 WBC (4.0-10.2) K/uL RBC (3.77-5.09) M/uL Hgb (11.7-15.5) g/dL Hct (34.0-46.0) % MCV (84.0-98.0) fL MCH (28.2-33.3) pg MCHC (31.7-36.0) g/dL RDW (11.2-14.1) % Plt Count (150-350) K/uL Neut % (Auto) (45.0-80.0) % Lymph % (Auto) (10.0-50.0) % Price % (Auto) (2.0-14.0) % Eos % (Auto) (0.0-5.0) % Baso % (Auto) (0.0-2.0) % Neut # (Auto) (1.40-7.00) K/uL Lymph # (Auto) (0.50-3.50) K/uL Price # (Auto) (0.00-1.00) K/uL Eos # (Auto) (0.00-0.50) K/uL Baso # (Auto) (0.00-0.20) K/uL PT (9.8-11.7) SEC INR APTT (22.1-29.8) SEC D-Dimer, Quantitative (0-400) ng/mL Sodium 137 (136-145) mmol/L Potassium 3.8 (3.5-5.1) mmol/L Chloride 101 (98-107) mmol/L Carbon Dioxide 25.4 (21.0-32.0) mmol/L BUN 10 (7-18) mg/dL Creatinine 0.66 (0.51-1.17) mg/dL Est Cr Clr Drug Dosing 83.03 Estimated GFR (MDRD) > 60 mL/min Glucose 86 (74-106) mg/dL Hemoglobin A1c 5.2 (4.3-5.7) % Lactic Acid 0.7 (0.4-2.0) mmol/L Uric Acid (2.6-7.2) mg/dL Calcium 8.3 L (8.5-10.1) mg/dL Magnesium (1.8-2.4) mg/dL Total Bilirubin 0.4 (0.2-1.0) mg/dL AST 35 (15-37) U/L ALT 24 (12-78) U/L Alkaline Phosphatase 71 (46-116) IU/L Creatine Kinase 73 (26-308) U/L Creatine Kinase Index 1.0 (0.0-2.5) % CK-MB (CK-2) 0.70 (0.00-3.60) ng/mL Troponin I 0.000 (0.000-0.056) ng/mL NT-Pro-B Natriuret Pep 416 H (0-125) pg/mL Total Protein 6.3 L (6.4-8.2) g/dL Albumin 2.4 L (3.4-5.0) g/dL Triglycerides 232 H (30-150) mg/dL Cholesterol 211 H (100-200) mg/dL LDL Cholesterol, Calc 70 (0-100) mg/dL HDL Cholesterol 95 H (40-60) mg/dL TSH, Ultra Sensitive (0.358-3.740) mIU/mL Prolactin ng/mL HCG, Qual (NEGATIVE) Specimen Type Urine Color Urine Appearance Urine pH (5.0-9.0) Ur Specific [place] (1.005-1.030) Urine Protein (NEGATIVE) mg/dL Urine Glucose (UA) (NEGATIVE) mg/dL Urine Ketones (NEGATIVE) mg/dL Urine Occult Blood (NEGATIVE) Urine Nitrite (NEGATIVE) Urine Bilirubin (NEGATIVE) Urine Urobilinogen (0.2-1.0) E.U./dL Ur Leukocyte Esterase (NEGATIVE) Urine RBC /HPF Urine WBC /HPF Ur Epithelial Cells /LPF Urine Bacteria (NONE TO FEW) /HPF Urinalysis Comment Urine Opiates Screen (NEGATIVE) Urine Methadone Screen U Acetaminophen Screen Ur Barbiturates Screen (NEGATIVE) Ur Tricyclics Screen (NEGATIVE) Ur Phencyclidine Scrn (NEGATIVE) Ur Amphetamine Screen (NEGATIVE) U Methamphetamines Scrn (NEGATIVE) U Benzodiazepines Scrn (NEGATIVE) U Cocaine Metab Screen (NEGATIVE) U Marijuana (THC) Screen (NEGATIVE) Ethyl Alcohol (0.000-0.080) g/dL 12/13/17 12/13/17 12/13/17 Range/Units 07:16 07:16 07:16 WBC 4.1 (4.0-10.2) K/uL RBC 4.47 (3.77-5.09) M/uL Hgb 9.2 L (11.7-15.5) g/dL Hct 32.6 L (34.0-46.0) % MCV 72.9 L (84.0-98.0) fL MCH 20.6 L (28.2-33.3) pg MCHC 28.2 L (31.7-36.0) g/dL RDW 20.5 H (11.2-14.1) % Plt Count 114 L (150-350) K/uL Neut % (Auto) 57.0 (45.0-80.0) % Lymph % (Auto) 21.2 (10.0-50.0) % Price % (Auto) 17.6 H (2.0-14.0) % Eos % (Auto) 3.7 (0.0-5.0) % Baso % (Auto) 0.5 (0.0-2.0) % Neut # (Auto) 2.34 (1.40-7.00) K/uL Lymph # (Auto) 0.87 (0.50-3.50) K/uL Price # (Auto) 0.72 (0.00-1.00) K/uL Eos # (Auto) 0.15 (0.00-0.50) K/uL Baso # (Auto) 0.02 (0.00-0.20) K/uL PT 10.1 (9.8-11.7) SEC INR 0.9 APTT 24.2 (22.1-29.8) SEC D-Dimer, Quantitative 358 (0-400) ng/mL Sodium (136-145) mmol/L Potassium (3.5-5.1) mmol/L Chloride (98-107) mmol/L Carbon Dioxide (21.0-32.0) mmol/L BUN (7-18) mg/dL Creatinine (0.51-1.17) mg/dL Est Cr Clr Drug Dosing Estimated GFR (MDRD) mL/min Glucose (74-106) mg/dL Hemoglobin A1c (4.3-5.7) % Lactic Acid (0.4-2.0) mmol/L Uric Acid (2.6-7.2) mg/dL Calcium (8.5-10.1) mg/dL Magnesium (1.8-2.4) mg/dL Total Bilirubin (0.2-1.0) mg/dL AST (15-37) U/L ALT (12-78) U/L Alkaline Phosphatase (46-116) IU/L Creatine Kinase (26-308) U/L Creatine Kinase Index (0.0-2.5) % CK-MB (CK-2) (0.00-3.60) ng/mL Troponin I (0.000-0.056) ng/mL NT-Pro-B Natriuret Pep (0-125) pg/mL Total Protein (6.4-8.2) g/dL Albumin (3.4-5.0) g/dL Triglycerides (30-150) mg/dL Cholesterol (100-200) mg/dL LDL Cholesterol, Calc (0-100) mg/dL HDL Cholesterol (40-60) mg/dL TSH, Ultra Sensitive (0.358-3.740) mIU/mL Prolactin ng/mL HCG, Qual (NEGATIVE) Specimen Type Urine Color Urine Appearance Urine pH (5.0-9.0) Ur Specific [place] (1.005-1.030) Urine Protein (NEGATIVE) mg/dL Urine Glucose (UA) (NEGATIVE) mg/dL Urine Ketones (NEGATIVE) mg/dL Urine Occult Blood (NEGATIVE) Urine Nitrite (NEGATIVE) Urine Bilirubin (NEGATIVE) Urine Urobilinogen (0.2-1.0) E.U./dL Ur Leukocyte Esterase (NEGATIVE) Urine RBC /HPF Urine WBC /HPF Ur Epithelial Cells /LPF Urine Bacteria (NONE TO FEW) /HPF Urinalysis Comment Urine Opiates Screen (NEGATIVE) Urine Methadone Screen U Acetaminophen Screen Ur Barbiturates Screen (NEGATIVE) Ur Tricyclics Screen (NEGATIVE) Ur Phencyclidine Scrn (NEGATIVE) Ur Amphetamine Screen (NEGATIVE) U Methamphetamines Scrn (NEGATIVE) U Benzodiazepines Scrn (NEGATIVE) U Cocaine Metab Screen (NEGATIVE) U Marijuana (THC) Screen (NEGATIVE) Ethyl Alcohol (0.000-0.080) g/dL 12/13/17 12/14/17 12/14/17 Range/Units 07:16 07:00 07:00 WBC 4.9 (4.0-10.2) K/uL RBC 4.14 (3.77-5.09) M/uL Hgb 8.7 L (11.7-15.5) g/dL Hct 30.9 L (34.0-46.0) % MCV 74.6 L (84.0-98.0) fL MCH 21.0 L (28.2-33.3) pg MCHC 28.2 L (31.7-36.0) g/dL RDW 20.9 H (11.2-14.1) % Plt Count 113 L (150-350) K/uL Neut % (Auto) 55.6 (45.0-80.0) % Lymph % (Auto) 23.1 (10.0-50.0) % Price % (Auto) 17.2 H (2.0-14.0) % Eos % (Auto) 3.7 (0.0-5.0) % Baso % (Auto) 0.4 (0.0-2.0) % Neut # (Auto) 2.72 (1.40-7.00) K/uL Lymph # (Auto) 1.13 (0.50-3.50) K/uL Price # (Auto) 0.84 (0.00-1.00) K/uL Eos # (Auto) 0.18 (0.00-0.50) K/uL Baso # (Auto) 0.02 (0.00-0.20) K/uL PT (9.8-11.7) SEC INR APTT (22.1-29.8) SEC D-Dimer, Quantitative 464 H (0-400) ng/mL Sodium 138 (136-145) mmol/L Potassium 3.4 L (3.5-5.1) mmol/L Chloride 101 (98-107) mmol/L Carbon Dioxide 29.3 (21.0-32.0) mmol/L BUN 9 (7-18) mg/dL Creatinine 0.72 (0.51-1.17) mg/dL Est Cr Clr Drug Dosing 76.11 Estimated GFR (MDRD) > 60 mL/min Glucose 107 H (74-106) mg/dL Hemoglobin A1c (4.3-5.7) % Lactic Acid (0.4-2.0) mmol/L Uric Acid (2.6-7.2) mg/dL Calcium 8.5 (8.5-10.1) mg/dL Magnesium (1.8-2.4) mg/dL Total Bilirubin (0.2-1.0) mg/dL AST (15-37) U/L ALT (12-78) U/L Alkaline Phosphatase (46-116) IU/L Creatine Kinase 50 (26-308) U/L Creatine Kinase Index 0.8 (0.0-2.5) % CK-MB (CK-2) 0.40 (0.00-3.60) ng/mL Troponin I 0.000 (0.000-0.056) ng/mL NT-Pro-B Natriuret Pep 183 H (0-125) pg/mL Total Protein (6.4-8.2) g/dL Albumin (3.4-5.0) g/dL Triglycerides (30-150) mg/dL Cholesterol (100-200) mg/dL LDL Cholesterol, Calc (0-100) mg/dL HDL Cholesterol (40-60) mg/dL TSH, Ultra Sensitive (0.358-3.740) mIU/mL Prolactin ng/mL HCG, Qual (NEGATIVE) Specimen Type Urine Color Urine Appearance Urine pH (5.0-9.0) Ur Specific [place] (1.005-1.030) Urine Protein (NEGATIVE) mg/dL Urine Glucose (UA) (NEGATIVE) mg/dL Urine Ketones (NEGATIVE) mg/dL Urine Occult Blood (NEGATIVE) Urine Nitrite (NEGATIVE) Urine Bilirubin (NEGATIVE) Urine Urobilinogen (0.2-1.0) E.U./dL Ur Leukocyte Esterase (NEGATIVE) Urine RBC /HPF Urine WBC /HPF Ur Epithelial Cells /LPF Urine Bacteria (NONE TO FEW) /HPF Urinalysis Comment Urine Opiates Screen (NEGATIVE) Urine Methadone Screen U Acetaminophen Screen Ur Barbiturates Screen (NEGATIVE) Ur Tricyclics Screen (NEGATIVE) Ur Phencyclidine Scrn (NEGATIVE) Ur Amphetamine Screen (NEGATIVE) U Methamphetamines Scrn (NEGATIVE) U Benzodiazepines Scrn (NEGATIVE) U Cocaine Metab Screen (NEGATIVE) U Marijuana (THC) Screen (NEGATIVE) Ethyl Alcohol (0.000-0.080) g/dL 12/14/17 Range/Units 07:00 WBC (4.0-10.2) K/uL RBC (3.77-5.09) M/uL Hgb (11.7-15.5) g/dL Hct (34.0-46.0) % MCV (84.0-98.0) fL MCH (28.2-33.3) pg MCHC (31.7-36.0) g/dL RDW (11.2-14.1) % Plt Count (150-350) K/uL Neut % (Auto) (45.0-80.0) % Lymph % (Auto) (10.0-50.0) % Price % (Auto) (2.0-14.0) % Eos % (Auto) (0.0-5.0) % Baso % (Auto) (0.0-2.0) % Neut # (Auto) (1.40-7.00) K/uL Lymph # (Auto) (0.50-3.50) K/uL Price # (Auto) (0.00-1.00) K/uL Eos # (Auto) (0.00-0.50) K/uL Baso # (Auto) (0.00-0.20) K/uL PT (9.8-11.7) SEC INR APTT (22.1-29.8) SEC D-Dimer, Quantitative (0-400) ng/mL Sodium 139 (136-145) mmol/L Potassium 3.7 (3.5-5.1) mmol/L Chloride 103 (98-107) mmol/L Carbon Dioxide 26.4 (21.0-32.0) mmol/L BUN 8 (7-18) mg/dL Creatinine 0.66 (0.51-1.17) mg/dL Est Cr Clr Drug Dosing 83.03 Estimated GFR (MDRD) > 60 mL/min Glucose 98 (74-106) mg/dL Hemoglobin A1c (4.3-5.7) % Lactic Acid (0.4-2.0) mmol/L Uric Acid (2.6-7.2) mg/dL Calcium 8.6 (8.5-10.1) mg/dL Magnesium (1.8-2.4) mg/dL Total Bilirubin (0.2-1.0) mg/dL AST (15-37) U/L ALT (12-78) U/L Alkaline Phosphatase (46-116) IU/L Creatine Kinase (26-308) U/L Creatine Kinase Index (0.0-2.5) % CK-MB (CK-2) (0.00-3.60) ng/mL Troponin I (0.000-0.056) ng/mL NT-Pro-B Natriuret Pep 38 (0-125) pg/mL Total Protein (6.4-8.2) g/dL Albumin (3.4-5.0) g/dL Triglycerides (30-150) mg/dL Cholesterol (100-200) mg/dL LDL Cholesterol, Calc (0-100) mg/dL HDL Cholesterol (40-60) mg/dL TSH, Ultra Sensitive (0.358-3.740) mIU/mL Prolactin ng/mL HCG, Qual (NEGATIVE) Specimen Type Urine Color Urine Appearance Urine pH (5.0-9.0) Ur Specific [place] (1.005-1.030) Urine Protein (NEGATIVE) mg/dL Urine Glucose (UA) (NEGATIVE) mg/dL Urine Ketones (NEGATIVE) mg/dL Urine Occult Blood (NEGATIVE) Urine Nitrite (NEGATIVE) Urine Bilirubin (NEGATIVE) Urine Urobilinogen (0.2-1.0) E.U./dL Ur Leukocyte Esterase (NEGATIVE) Urine RBC /HPF Urine WBC /HPF Ur Epithelial Cells /LPF Urine Bacteria (NONE TO FEW) /HPF Urinalysis Comment Urine Opiates Screen (NEGATIVE) Urine Methadone Screen U Acetaminophen Screen Ur Barbiturates Screen (NEGATIVE) Ur Tricyclics Screen (NEGATIVE) Ur Phencyclidine Scrn (NEGATIVE) Ur Amphetamine Screen (NEGATIVE) U Methamphetamines Scrn (NEGATIVE) U Benzodiazepines Scrn (NEGATIVE) U Cocaine Metab Screen (NEGATIVE) U Marijuana (THC) Screen (NEGATIVE) Ethyl Alcohol (0.000-0.080) g/dL [facility] Results - Last 24 hrs: Microbiology 12/11/17 10:30 Urine Culture - Final Urine, Clean Catch MIXED JASSI SUGGESTIVE OF CONTAMINATION. 12/13/17 09:42 Stool Occult Blood ([facility]A) - Final Stool / Feces NEGATIVE OCCULT BLOOD Microbiology 12/11/17 10:30 Urine, Clean Catch Urine Culture - Final MIXED JASSI SUGGESTIVE OF CONTAMINATION. 12/13/17 09:42 Stool / Feces Stool Occult Blood ([facility]A) - Final NEGATIVE OCCULT BLOOD Med Orders - Current: Current Medications Acetaminophen (Tylenol) 650 mg PO Q4H PRN PRN Reason: Pain Citalopram Hydrobromide (Celexa) 20 mg PO DAILY [facility] Last Admin: 12/14/17 07:37 Dose: 20 mg Famotidine (Pepcid) 20 mg IVPUSH BID [facility] Last Admin: 12/14/17 07:36 Dose: 20 mg Ferrous Sulfate (Ferrous Sulfate) 325 mg PO BIDMEALS [facility] Last Admin: 12/14/17 07:37 Dose: 325 mg Furosemide (Lasix) 20 mg IVPUSH DAILY [facility] Ceftriaxone Sodium 1 gm/ (Sodium Chloride) 100 mls @ 200 mls/hr IV Q12H [facility] Last Admin: 12/14/17 01:35 Dose: 200 mls/hr Lisinopril (Prinivil) 20 mg PO BEDTIME [facility] Lorazepam (Ativan) 1 mg PO Q6H PRN PRN Reason: Anxiety Last Admin: 12/13/17 22:09 Dose: 1 mg Magnesium Oxide (Magnesium Oxide) 400 mg PO DAILY [facility] Last Admin: 12/14/17 07:37 Dose: 400 mg Non-Formulary Medication (B12/Levomefolate Calcium/B-6 [Foltx Tablet]) 1 each PO DAILY [facility] Non-Formulary Medication (Biotin [Biotin]) 5 mg PO DAILY [facility] Non-Formulary Medication (Lactobacillus Acidophilus [Acidophilus Lactobacillus] ) 1 each PO DAILY [facility] Ondansetron HCl (Zofran) 4 mg IVPUSH Q6H PRN PRN Reason: Nausea/Vomiting Last Admin: 12/12/17 10:03 Dose: 4 mg Pantoprazole Sodium (Protonix Iv) 40 mg IVPUSH Q12H [facility] Last Admin: 12/13/17 22:08 Dose: 40 mg Potassium Chloride (Klor-Con M20) 20 meq PO TID [facility] Last Admin: 12/14/17 07:36 Dose: 20 meq Propranolol HCl (Inderal La) 60 mg PO DAILY [facility] Last Admin: 12/14/17 07:37 Dose: 60 mg Simvastatin (Zocor) 10 mg PO BEDTIME [facility] Last Admin: 12/13/17 20:04 Dose: 10 mg Sodium Chloride (Saline Flush) 10 ml FLUSH ASDIRECTED PRN PRN Reason: Keep Vein Open Last Admin: 12/14/17 07:36 Dose: 10 ml Sodium Chloride (Saline Flush) 10 ml FLUSH Q12HR PRN PRN Reason: Keep Vein Open Last Admin: 12/14/17 01:36 Dose: 10 ml Discontinued Medications Cyanocobalamin (Vitamin B12) 1,000 mcg IM ONETIME ONE Stop: 12/12/17 10:10 Last Admin: 12/12/17 10:59 Dose: 1,000 mcg Enoxaparin Sodium (Lovenox) 100 mg SUBCUT Q24H [facility] Last Admin: 12/11/17 15:33 Dose: 100 mg Enoxaparin Sodium (Lovenox) 100 mg SUBCUT Q24H [facility] Last Admin: 12/12/17 14:24 Dose: 100 mg Famotidine (Pepcid) 40 mg IVPUSH ONETIME ONE Stop: 12/11/17 09:57 Last Admin: 12/11/17 10:14 Dose: 40 mg Furosemide (Lasix) 20 mg IVPUSH Q12H [facility] Last Admin: 12/13/17 09:56 Dose: 20 mg Furosemide (Lasix) 20 mg IVPUSH DAILY [facility] Last Admin: 12/14/17 07:36 Dose: 20 mg Iopamidol (Isovue-370 (76%)) 100 ml IVPUSH ONETIME ONE Stop: 12/11/17 10:39 Last Admin: 12/11/17 10:59 Dose: 100 ml Iopamidol (Isovue-300 (61%)) 100 ml IVPUSH ONETIME ONE Stop: 12/13/17 12:01 Last Admin: 12/13/17 12:27 Dose: 100 ml Lisinopril (Prinivil) 20 mg PO ONETIME ONE Stop: 12/11/17 11:51 Last Admin: 12/11/17 11:53 Dose: 20 mg Lisinopril (Prinivil) 20 mg PO DAILY [facility] Last Admin: 12/13/17 07:46 Dose: 20 mg Lorazepam (Ativan) 1 mg PO ONETIME ONE Stop: 12/12/17 13:09 Last Admin: 12/12/17 14:36 Dose: 1 mg Phenazopyridine HCl (Urinary Pain Relief) 95 mg PO TIDPC [facility] Stop: 12/13/17 18:00 Last Admin: 12/13/17 14:43 Dose: 95 mg Potassium Chloride (Klor-Con M20) 20 meq PO BID [facility] Last Admin: 12/13/17 07:45 Dose: 20 meq Temazepam (Restoril) 15 mg PO BEDTIME PRN PRN Reason: Insomnia - Exam Quality Assessment: Reports: DVT Prophylaxis. Denies: Supplemental Oxygen, Central Line/PICC, Urine Catheter, Skin Breakdown, Restraints General: Reports: Alert, Oriented, Cooperative, No Acute Distress HEENT: Reports: Pupils Equal, Pupils Reactive, EOMI, Mucous Membr. Moist/[place]ck: Reports: Supple, Trachea Midline, No JVD, No Thyromegaly, +2 Carotid Pulse wo Bruit. Denies: Lymphadenopathy Lungs: Reports: Clear to Auscultation, Normal Respiratory Effort. Denies: Rub Cardiovascular: Reports: Regular Rate, Regular Rhythm, No Murmurs. Denies: Gallops GI/Abdominal Exam: Normal Bowel Sounds, Soft, Non-Tender, No Organomegaly, No Distention, No Abnormal Bruit, No Mass, Pelvis Stable, Other (Obese. Mild ecchymosis about signs of infection at Lovenox injection sites). No: Guarding (Female) Exam: Deferred Rectal (Female) Exam: Deferred Back Exam: Reports: Normal Inspection, Full Range of Motion. Denies: CVA Tenderness (L), CVA Tenderness (R), Muscle Spasm Extremities: Normal Inspection, Normal Range of Motion, Non-Tender, No Pedal Edema, Normal Capillary Refill Skin: Reports: Warm, Dry, Intact, Ecchymosis (As above), Other (Mild pallor) Neurological: Reports: No New Focal Deficit, Other (No clinical orthostasis) Psy/Mental Status: Reports: Alert, Normal Affect (Patient smiling), Normal Mood. Denies: Labile Mood, Anxious, Depressed, Agitated, Suicidal Ideation, Homicidal Ideation, Hallucinations, Withdrawal Symptoms
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
[2017-12-14] MEDS: Pantoprazole 40 MG Vial IVPUSH SCH (10:32)
--- NOTE | 2017-12-14 10:49 | PCM.SN ---
- Free Text/Narrative Note: See Discharge Summary #2 for treatment of H. pylori infection and change of her treatment for her UTI.
[2017-12-14 11:25] VITALS: BP 110/60
[2017-12-14] MEDS ORDERED: Lisinopril 20 MG Tab PO SCH (20:00)
[2017-12-15] MEDS ORDERED: Furosemide 20 MG/2 ML VIAL IVPUSH SCH (08:00)
== END 2017-12-14 11:45 | disposition home or self-care (01) | DRG 690 ==
LOC: LL.ED 09:53 → LL.MS 12:25 → OBSVTOIN 12-12 13:10
PROVIDERS: ADMIT Family Medicine; ATTEND Family Medicine
DX: N39.0 Urinary tract infection, site not specified (principal); E87.2 Acidosis; A04.8 Other specified bacterial intestinal infections; Z68.41 Body mass index [BMI] 40.0-44.9, adult; B96.81 Helicobacter pylori [H. pylori] as the cause of diseases classified elsewhere; Z91.14 Patient's other noncompliance with medication regimen; R79.1 Abnormal coagulation profile; N20.0 Calculus of kidney; F41.8 Other specified anxiety disorders; K21.9 Gastro-esophageal reflux disease without esophagitis; Z98.84 Bariatric surgery status; E78.2 Mixed hyperlipidemia; D50.9 Iron deficiency anemia, unspecified; E79.0 Hyperuricemia without signs of inflammatory arthritis and tophaceous disease; K76.0 Fatty (change of) liver, not elsewhere classified; E66.9 Obesity, unspecified; E88.09 Other disorders of plasma-protein metabolism, not elsewhere classified; E83.42 Hypomagnesemia; G43.909 Migraine, unspecified, not intractable, without status migrainosus; F10.10 Alcohol abuse, uncomplicated; E87.6 Hypokalemia; T50.1X5A Adverse effect of loop [high-ceiling] diuretics, initial encounter; K57.90 Diverticulosis of intestine, part unspecified, without perforation or abscess without bleeding; Z79.899 Other long term (current) drug therapy; I11.0 Hypertensive heart disease with heart failure; I50.9 Heart failure, unspecified; Z90.49 Acquired absence of other specified parts of digestive tract; R47.02 Dysphasia; R41.0 Disorientation, unspecified; M19.90 Unspecified osteoarthritis, unspecified site; D51.3 Other dietary vitamin B12 deficiency anemia; Z85.41 Personal history of malignant neoplasm of cervix uteri; R11.0 Nausea; R23.1 Pallor
CPT/HCPCS: 36415; 70450; 70544; 71045; 71275; 74022; 74177; 80048; 80053; 80061; 80305; 81001; 82272; 82550; 82553; 83036; 83605; 83735; 83880; 84146; 84443; 84484; 84550; 84703; 85025; 85379; 85610; 85730; 87086; 87338; 93005; 93970; 96365; 96366; 96372; 96374; 96375; 96376; 99285; A9270-GY; C9113; G0378; G0480; J0696; J1650; J1940; J2405; J3420; J7050; Q9967; S0028